=== PATIENT | male | born 2005 | race African-American/Black ===

== ENCOUNTER 2025-09-27 14:20 | Emergency (ER) | payer OTHER, SELFPAY | END 2025-09-27 15:32 | disposition home or self-care (01) | LOC: ERS 14:20 | DX: S39.012A Strain of muscle, fascia and tendon of lower back, initial encounter (principal); S16.1XXA Strain of muscle, fascia and tendon at neck level, initial encounter; V89.2XXA Person injured in unspecified motor-vehicle accident, traffic, initial encounter | CPT/HCPCS: 99283 ==